=== PATIENT | female | born 1950 | race Caucasian/White ===

== ENCOUNTER → 2023-01-04 | Outpatient (CLI) | payer MEDICARE, OTHER ==
--- NOTE | 2023-01-04 17:02 | Diagnostic Imaging Report ---
PROCEDURE: US Renal/Bladder. TECHNIQUE: Multiple real-time grayscale images were obtained over the kidneys in various projections bilaterally. INDICATION: Renal insufficiency. COMPARISON: None. FINDINGS: Right: The right kidney measures 8.4 cm in length. Renal cortical thickness and echogenicity are within normal limits. There is no evidence of calculi, solid focal mass or hydronephrosis. No perinephric fluid collections are identified. Left: The left kidney measures 8.9 cm in length. Renal cortical thickness and echogenicity are within normal limits. There is no evidence of calculi, solid focal mass or hydronephrosis. No perinephric fluid collections are identified. There is no abdominal ascites. Views of the pelvis demonstrate a moderately distended urinary bladder. Both ureteral jets are seen. No large intraluminal filling defect or calculi are identified. IMPRESSION: 1. No acute renal abnormalities identified. Dictated by: Dictated on workstation # [id number]
== END ==
LOC: RAD 13:00
PROVIDERS: ATTEND Family Medicine
DX: N28.9 Disorder of kidney and ureter, unspecified (principal)
CPT/HCPCS: 76770

== ENCOUNTER → 2023-01-08 | Outpatient (CLI) | payer MEDICARE, OTHER | LOC: RAD 14:57 | PROVIDERS: ATTEND Family Medicine | DX: Z12.31 Encounter for screening mammogram for malignant neoplasm of breast (principal) | CPT/HCPCS: 77063; 77067 ==

== ENCOUNTER → 2023-01-23 | Outpatient (CLI) | payer MEDICARE, OTHER ==
--- NOTE | 2023-01-23 17:11 | Diagnostic Imaging Report ---
INDICATION: Screening COMPARISON: None available FINDINGS: AP Spine L1-L4: [BMD (g/cm2): NA] [T-Score: NA] [Z-Score: NA] [BMD Previous: NA] [BMD % Change: NA] LT Hip Neck: [BMD (g/cm2): 0.706] [T-Score: -2.4] [Z-Score: -0.9] LT Hip Total: [BMD (g/cm2):0.768] [T-Score:-1.9] [Z-Score: -0.7] [BMD Previous: NA] [BMD % Change: NA] RT Hip Neck: [BMD (g/cm2):0.771] [T-Score:-1.9] [Z-Score:-0.5] RT Hip Total: [BMD (g/cm2):0.778] [T-score:-1.8] [Z-Score:-0.6] [BMD Previous:NA] [BMD % Change:NA] *Indicates significant change from prior examination based on 95% confidence level. World Health Organization criteria for BMD interpretation classify patients as Normal (T-score at or above -1.0), Osteopenic (T-score between -1.0 and -2.5) or Osteoporotic (T-score at or below -2.5). LIMITATIONS AND MODIFICATION: None. FRACTURE RISK (FRAX SCORE): The ten year probability of (%): Major Osteoporotic Fracture: [13.8] Hip Fracture: [3.5] IMPRESSION: Osteopenia. See below National Osteoporosis Foundation guidelines on when to potentially initiate pharmacologic therapy. Based on the National Osteoporosis Foundation Guidelines, pharmacologic treatment should be initiated in any of the following, unless clinical conditions suggest otherwise: * Any patient with prior fragility fracture of the hip or vertebrae. A spine fracture indicates 5X risk for subsequent spine fracture and 2X risk for subsequent hip fracture. * Osteoporosis (T-score <-2.5). * Postmenopausal women and men age 50 and older with low bone mass/osteopenia (T-score between -1.0 and -2.5) by DXA and 10-year major osteoporotic fracture greater than 20% or a 10-year probability of hip fracture greater than 3%. These fracture risks are supplied above in the FRAX score, if applicable. * Clinician judgement and/or patient preferences may indicate treatment for people with 10-year fracture probabilities above or below these levels. Dictated by: Dictated on workstation # [id number]
== END ==
LOC: RAD 14:30
PROVIDERS: ATTEND Nurse Practitioner Family
DX: Z13.820 Encounter for screening for osteoporosis (principal); M85.89 Other specified disorders of bone density and structure, multiple sites
CPT/HCPCS: 77080

== ENCOUNTER → 2023-01-26 | Outpatient (RCR) | payer MEDICARE, OTHER | END | disposition still patient (30) | PROVIDERS: ATTEND Family Medicine | DX: M51.36 Other intervertebral disc degeneration, lumbar region (principal); M21.762 Unequal limb length (acquired), left tibia; I10 Essential (primary) hypertension ==

== ENCOUNTER → 2023-02-13 | Outpatient (CLI) | payer MEDICARE, OTHER ==
[~2023-02-13] MED LIST: GADOTERATE 0.5 MMOL/ML (CLARISCAN) 15 ML VIAL IV ONE
--- NOTE | 2023-02-13 12:21 | Diagnostic Imaging Report ---
PROCEDURE: MRI lumbar spine with and without contrast. TECHNIQUE: Multiplanar, multisequence MRI of the lumbar spine was performed with and without contrast. INDICATION: Back pain COMPARISON: None available. FINDINGS: Straightening of the lumbar lordosis. Posterior cerclage fusion from L3 to L5. Disc replacement at L2-L3, L3-L4, L4-L5. No acute compression fracture. Degenerative endplate edema at L1-L2. No marrow replacing process to suggest malignancy. The remainder of the levels demonstrate moderate disc height loss. Included views of the abdomen demonstrates no significant finding. The conus is normal. The cauda equina have a redundant appearance the level of L1-L2. T12-L1 disc bulge. Mild facet arthropathy. No significant spinal canal and neural foraminal narrowing. L1-L2: Disc bulge. Ligamentum flavum thickening. Moderate facet arthropathy. Severe spinal canal stenosis. Moderate bilateral neural foraminal narrowing. L2-L3: Disc replacement. Cerclage fusion. No significant spinal canal or neural foraminal narrowing. L3-L4:Disc replacement. Cerclage fusion. No significant spinal canal or neural foraminal narrowing. L4-L5:Disc replacement. Cerclage fusion. Ligamentum flavum thickening. Mild left lateral recess narrowing. Mild spinal canal narrowing. No neural foraminal narrowing. L5-S1: Broad-based disc bulge protruding into the bilateral neural foramina. Ligamentum flavum thickening. Mild facet arthropathy. Moderate spinal canal stenosis. Moderate bilateral lateral recess stenosis. Moderate bilateral neural foraminal stenosis. Impression: Severe spinal canal stenosis at L1-L2. Additional degenerative changes described level by level above. Dictated by: Dictated on workstation # [id number]
== END ==
LOC: RAD 10:15
PROVIDERS: ATTEND Family Medicine
DX: M51.15 Intervertebral disc disorders with radiculopathy, thoracolumbar region (principal); M47.895 Other spondylosis, thoracolumbar region; M51.26 Other intervertebral disc displacement, lumbar region; M24.28 Disorder of ligament, vertebrae; M47.26 Other spondylosis with radiculopathy, lumbar region; M48.061 Spinal stenosis, lumbar region without neurogenic claudication
CPT/HCPCS: 72158

== ENCOUNTER 2023-04-16 05:27 | Outpatient (CLI) | payer MEDICARE, OTHER ==
[~2023-04-16] VITALS: Ht 152.4 cm; Wt 77.3 kg
[2023-04-17] MEDS ORDERED: ESOM20TA PO (09:16)
[2023-04-17] MEDS ORDERED: TRAZ-227 PO (09:16)
[2023-04-17] MEDS ORDERED: GABA300C PO (09:16)
[2023-04-17] MEDS ORDERED: AMLO2.5T2 PO (09:16)
[2023-04-17] MEDS ORDERED: RALO60TA PO (09:16)
[2023-04-17] MEDS ORDERED: SIMV40TA25 PO (09:16)
[2023-04-17] MEDS ORDERED: BUPR150T24 PO (09:16)
[2023-04-17] MEDS ORDERED: LEVO100C4 PO (09:16)
[2023-04-17] MEDS ORDERED: CHLO25TA22 PO (09:16)
[2023-04-17] MEDS ORDERED: BUPR300T98 PO (09:16)
[2023-04-17] MEDS ORDERED: LOSA50TA63 PO (09:16)
[2023-04-17] MEDS ORDERED: DULO60CA59 PO (09:16)
== END 2023-04-17 09:18 ==
LOC: PREOP 05:27
PROVIDERS: ATTEND Podiatrist Foot & Ankle Surgery
DX: Z01.818 Encounter for other preprocedural examination (principal)

== ENCOUNTER 2023-04-23 06:05 | Day surgery (SDC) | payer MEDICARE, OTHER ==
[2023-04-23] VITALS (11 sets, daily range): BP systolic 126–149; BP diastolic 79–91
[~2023-04-23] VITALS: Ht 152 cm; Wt 77.3 kg
[~2023-04-23 06:05] MED LIST changes: +AMLO2.5T2 PO; +BUPR150T24 PO; +BUPR300T98 PO; +CHLO25TA22 PO; +DULO60CA59 PO; +ESOM20TA PO; +GABA300C PO; -GADOTERATE 0.5 MMOL/ML (CLARISCAN) 15 ML VIAL IV ONE; +LEVO100C4 PO; +LOSA50TA63 PO; +RALO60TA PO; +SIMV40TA25 PO; +TRAZ-227 PO
[2023-04-23] MEDS ORDERED: CLINDAMYCIN 600 MG/50 ML IVPB 50 ML IV ONE ×2 (06:15→06:41)
[2023-04-23] MEDS: LACTATED RINGERS 1,000 ML IV PRN ×2 (06:43→08:55)
[2023-04-23] MEDS ORDERED: SCOPOLAMINE 1.5 MG (TRANSDERM-SCOP) PATCH TOP ONE (06:45)
[2023-04-23] MEDS ORDERED: FAMOTIDINE 20MG/2ML IV (PEPCID) IV ONE (06:45)
[2023-04-23] MEDS ORDERED: ONDANSETRON 4 MG/2 ML (SDV) Z0FRAN IV ONE (06:45)
[2023-04-23] MEDS ORDERED: ONDANSETRON 4 MG/2 ML (SDV) Z0FRAN ONE ×2 (06:46→07:30)
[2023-04-23] MEDS ORDERED: SCOPOLAMINE 1.5 MG (TRANSDERM-SCOP) PATCH ONE (06:46)
[2023-04-23] MEDS ORDERED: FAMOTIDINE 20MG/2ML IV (PEPCID) ONE (06:46)
[2023-04-23] MEDS ORDERED: LIDOCAINE 1% INJ 20 ML VIAL ONE (07:14)
[2023-04-23] MEDS ORDERED: BUPIVACAINE 0.5% 30 ML (SENSORCAINE) VIAL ONE (07:14)
[2023-04-23] MEDS ORDERED: proPOfol 200 MG/20 ML (DIPRIVAN) VIAL IV ONE (07:30)
[2023-04-23] MEDS ORDERED: LIDOCAINE PF 2% 5 ML (XYLOCAINE) VIAL ONE (07:30)
[2023-04-23] MEDS ORDERED: fentaNYL INJ 100 MCG/2 ML AMP ONE (07:31)
--- NOTE | 2023-04-23 07:44 | Progress Note-Pre Operative ---
Pre-Operative Progress Note Date of Available H&P: Apr 23, 2023 Date H&P Reviewed: Apr 23, 2023 Time H&P Reviewed: 07:44 Pre-Operative Diagnosis: Hallux Valgus left GIUSEPPE GANNON DPM Apr 23, 2023 07:44
[2023-04-23] MEDS ORDERED: SEVOFLURANE (ULTANE) 15 ML INHAL SOLN ONE (09:00)
--- NOTE | 2023-04-23 09:03 | Progress Note-Post Operative ---
Post-Operative Progess Note Surgeon (s)/News Cameraman (s) Surgeon GIUSEPPE GANNON DPM News Cameraman: none Pre-Operative Diagnosis Hallux Valgus left Post-Operative Diagnosis Same Procedure & Operative Findings Date of Procedure 04/23/23 Procedure Performed/Findings Modified Satish-Pablo Bunionectomy left Anesthesia Type General Estimated Blood Loss Estimated blood loss (mL): Minimal Specimens/Packing Specimens Removed none GIUSEPPE GANNON DPM Apr 23, 2023 09:03
[2023-04-23] MEDS ORDERED: ACHD5005 PO (09:10)
[2023-04-23] MEDS ORDERED: CLIN150C2 PO (09:10)
[2023-04-23] MEDS ORDERED: LACTATED RINGERS 1,000 ML IV SCH (09:15)
[2023-04-23] MEDS ORDERED: HYDROcodone/APAP 5 MG/325 MG (LORTAB) TAB PO PRN (09:15)
--- NOTE | 2023-04-23 09:16 | Anesthesia-General Post-Op ---
General Patient Condition Mental Status/LOC: Same as Preop Cardiovascular: Satisfactory Nausea/Vomiting: Absent Respiratory: Satisfactory Pain: Controlled Complications: Absent Post Op Complications Complications None Follow Up Care/Instructions Patient Instructions None needed. Anesthesia/Patient Condition Patient Condition Patient is doing well, no complaints, stable vital signs, no apparent adverse anesthesia problems. No complications reported per nursing. WILDER GUERRERO CRNA Apr 23, 2023 09:16
[2023-04-23] MEDS ORDERED: PROMETHAZINE INJ 25 MG/ML (PHENERGAN) AMP IVP ONE (09:30)
[2023-04-23] MEDS ORDERED: ONDANSETRON 4 MG/2 ML (SDV) Z0FRAN IVP PRN (09:30)
[2023-04-23] MEDS ORDERED: morphine INJ 10 MG/ML 1ML (SYR OR VIAL) IVP ONE (09:30)
--- NOTE | 2023-04-23 12:04 | Physical Therapy Ortho Eval ---
PT Orthopedic Evaluation Type of Surgery Hallux Valgus left Prior Level of Function Current Living Status: Alone Locomotion (Upon Admit): Independent Established Durable Medical Eq: Front Wheeled Walker Subjective Entry Into Home: Stairs Without Railing Steps Into Home: 1 Motor Control Motor Control: Motor Control WNL ROM ROM: WFL, except focal deficit Strength Strength: Gen Weak,No Focal Deficit Transfer SCALE: Activities may be completed with or without assistive devices. 8-Dftgrqrguv-uvzfjtb completes the activity by him/herself with no assistance from a helper. 5-Set-up or Clean-up Assistance-helper sets up or cleans up; patient completes activity. [place] assists only prior to or following the activity. 4-Supervision or Touching Assistance-helper provides verbal cues and/or touching/steadying and/or contact guard assistance as patient completes activity. Assistance may be provided throughout the activity or intermittently. 3-Partial/Moderate Assistance-helper does LESS THAN HALF the effort. [place] lifts, holds or supports trunk or limbs, but provides less than half the effort. 2-Substantial/Maximal Assistance-helper does MORE THAN HALF the effort. [place] lifts or holds trunk or limbs and provides more than half the effort. 8-Wamjcgblf-ulpwvd does ALL the effort. Patient does none of the effort to complete the activity. Or, the assistance of 2 or more helpers is required for the patient to complete the activity. If activity was not attempted, code reason: 7-Patient Refused. 9-Not Applicable-not attempted and the patient did not perform the activity before the current illness, exacerbation or injury. 10-Not Attempted due to Environmental Limitations-(lack of equipment, weather restraints, etc.). 88-Not Attempted due to Medical Conditions or Safety Concerns. Transfers (B, C, W/C) (QC): 3 Gait Gait Assistive Device: FWW Right Lower Extremity: Right Weight Bearing Status RLE: Full Weight Bearing Left Lower Extremity: Left Weight Bearing Status LLE: Non Weight Bearing Other Weight Bearing Inst.: Heel contact for balance and transfers Gait (QC): 3 Distance: 30' Summary/Comments Patient had difficulty with NWB left LE/will be getting a knee scooter per son report Stairs attempted a step, however, patient refused to complete Treatment Rendered Treatment: Gait Train, Step Train Assessment/Goals Goal Time Frame: 1 Visit Plan Treatment Plan: Discharge Education with patient and family on NWB and use of FWW and knee scooter. Patient requires min to mod assist for safety at this time. Time Time In: 1114 Time Out: 1128 Total Billed Treatment Time: 14 Billed Treatment Time [address] [facility] 14 min DONY LIN PT Apr 23, 2023 12:04
--- NOTE | 2023-04-23 15:11 | OPERATIVE REPORT ---
DATE OF SERVICE: 04/23/2023 SURGEON: Giuseppe Gannon DPM PREOPERATIVE DIAGNOSIS: Hallux abductovalgus metatarsal primus varus, left. POSTOPERATIVE DIAGNOSES: Hallux abductovalgus metatarsal primus varus, left. PROCEDURE: Modified Satish-Pablo bunionectomy, left foot. WOUND CLASS: Clean. ANESTHESIA: General. HEMOSTASIS: Pneumatic thigh tourniquet at 250 mmHg. INDICATIONS: This 73-year-old female presents complaining of a painful bunion of the left foot. Conservative therapy is met with unsatisfactory results and the patient is agreeable to surgical intervention after risks and complications were discussed at length. No guarantees were extended to the patient and she is willing to proceed. PROCEDURE IN DETAIL: The patient was brought back to the operating table and placed in secure supine position. A general anesthetic was then induced. Appropriate timeout was performed. A pneumatic thigh tourniquet was placed on the left lower extremity over several layers padding. The left foot received a local anesthetic, 1:1 mixture of 1% Xylocaine and 0.5% Marcaine injected in a Carson block. The left foot was then prepped and draped in normal sterile manner. The left foot was then elevated, allowed to exsanguinate after which the tourniquet was inflated to 250 mmHg. Attention was then directed to the dorsal aspect of the right first metatarsophalangeal joint where a 6 cm longitudinal linear incision was created. The incision was deepened in the same plane with great care to identify and retract all vital neurovascular structures. Only necessary blood vessels were cauterized as encountered. The incision was deepened down to the capsular tissue where a longitudinal capsulotomy was performed. This exposed the hypertrophic medial eminence to the first metatarsal head, which was resected utilizing a power sagittal saw. Blunt dissection was then carried out into the first intermetatarsal space where a lateral release was performed. This included a lateral capsulorrhaphy as well as a release of the conjoined tendon of the adductor hallucis as well as the fibular sesamoidal ligament. Attention was then redirected to the medial aspect of the first metatarsal where a Chevron type osteotomy was performed at the surgical neck and head area. This allowed the capital fragment to translocate laterally and was fixated in its corrected position utilizing a 0.062 threaded K-wire driven from dorsal to plantar across the osteotomy with great care not to penetrate the articular cartilage. The K-wire was cut flush with the dorsal aspect of the first metatarsal. The wound was flushed with copious amounts of normal saline. After further contoured and smoothing with a power sagittal saw and power bur was performed. Attention was then directed to the proximal phalanx of the left hallux where an Pablo type osteotomy was performed. Subperiosteal dissection was carried out after which the wedge of bone was resected with a power sagittal saw with the base medial and the lateral cortices held intact. Once the wedge of bone was resected, the gap was closed. Two Restaurant Hospitality Manager holes were created at the dorsal medial aspect of the osteotomy after which a 28-gauge monofilament wires. Wire was passed through this area, securing the osteotomy in a closed position. Excellent bony apposition and fixation was appreciated this time. The wounds were flushed with copious amounts of normal saline. Closure was then performed in layers. Deep closure was performed with 3-0 Vicryl, superficial with 4-0 Vicryl, skin closed with 4-0 Prolene in a horizontal mattress type stitch. Postoperative injection consisted of 16 mL of 0.5% Marcaine injected in a Carson block followed by 10 mg of dexamethasone into the first intermetatarsal space. Postoperative dressing consisted of Betadine-soaked Adaptic, sterile 4 x 4's, sterile Kerlix, all secured with Coban wrap. The patient tolerated the anesthesia and procedure well and was transported from the operating room to the recovery room with vital signs stable and vascular status intact to all digits of the left foot. She is to be nonweightbearing to left forefoot over the next 4-6 weeks with heel contact only. She was given a prescription for clindamycin as well as Vicodin. She indicated that she cannot tolerate oxycodone, but hydrocodone she does well with. She is to follow up in the office in 10 days period of time. Job ID: [id number] DocumentID: [id number] Dictated Date: 04/23/2023 09:19:06 Speech And Language Specialist Date: 04/23/2023 15:09:00 Dictated By: GIUSEPPE GANNON DPM
--- NOTE | 2023-04-23 17:36 | Diagnostic Imaging Report ---
INDICATION: Left foot pain 2 views of left foot show postoperative changes from osteotomies of the proximal phalanx of big toe and the head of 1st metatarsal. IMPRESSION: Postoperative changes from bunion repair surgery of the left foot. Bones appear to be in good alignment. No acute abnormality seen. Dictated by: Dictated on workstation # [id number]
== END 2023-04-23 11:35 | disposition home or self-care (01) ==
LOC: SDC 06:05
PROVIDERS: ATTEND Podiatrist Foot & Ankle Surgery
DX: M20.12 Hallux valgus (acquired), left foot (principal); M21.172 Varus deformity, not elsewhere classified, left ankle; M51.36 Other intervertebral disc degeneration, lumbar region; E03.9 Hypothyroidism, unspecified; K21.00 Gastro-esophageal reflux disease with esophagitis, without bleeding; I10 Essential (primary) hypertension; E78.2 Mixed hyperlipidemia; M81.0 Age-related osteoporosis without current pathological fracture; F41.8 Other specified anxiety disorders
CPT/HCPCS: 28299; 73620; 87081; 97162; C1713